=== PATIENT | female | born 1985 | race Caucasian/White ===

== ENCOUNTER → 2021-02-09 | Outpatient (CLI) | payer OTHER | LOC: LAB 16:59 | DX: Z32.00 Encounter for pregnancy test, result unknown (principal) | CPT/HCPCS: 36415; 84702 ==

== ENCOUNTER → 2021-02-17 | Outpatient (CLI) | payer OTHER | LOC: LAB 10:34 | DX: Z32.00 Encounter for pregnancy test, result unknown (principal); O20.0 Threatened abortion | CPT/HCPCS: 36415; 84702; 86900; 86901 ==

== ENCOUNTER → 2021-02-19 | Outpatient (CLI) | payer OTHER | LOC: LAB 17:50 | DX: N91.2 Amenorrhea, unspecified (principal) | CPT/HCPCS: 84702 ==